=== PATIENT | male | born 1975 | race Caucasian/White ===

== ENCOUNTER 2023-05-27 20:47 | Emergency (ER) | payer SELFPAY ==
[2023-05-27 21:04] VITALS: BP 125/86; PULSE 74; RESP 20; TEMP 36.9; O2SAT 98; BMI 18.1
[2023-05-27 21:56] VITALS: BP 104/71; PULSE 80; RESP 16; O2SAT 100
--- NOTE | 2023-05-27 22:03 | ED.URI1 ---
HPI - URI/Sore Throat General Chief Complaint: Upper Respiratory Infection Stated Complaint: sore throat Time Seen by Provider: 05/27/23 21:25 Source: patient Limitations: no limitations History of Present Illness HPI Narrative: 10 days ago the patient developed sore throat and mild congestion and cough. No vomiting or diarrhea. He had chills initially and has been having night sweats since then. He has tried OTC meds - nyquil - with slow and steady improvement but the continued sweats at night worried me so he decided to come in for evaluation. Related Data Previous Rx's Medication Instructions Recorded azithromycin 250 mg tablet 250 mg PO DAILY 4 days #4 tabs 05/27/23 Allergies Allergy/AdvReac Type Severity Reaction Status Date / Time No Known Drug Allergies Allergy Verified 05/27/23 21:10 [facility] Social History Smoking status: Current every day smoker Exam Narrative Exam Narrative: Nurses notes and vital signs reviewed and patient is not hypoxic. afebrile General: Well-appearing and in no apparent distress. occasional dry cough Skin: Warm, dry, no pallor noted. No rash. Head: Normocephalic, atraumatic. Neck: Supple, non-tender. no cervical lymphadenopathy Eye: Pupils are equal, round and EOMI. No scleral icterus. Ears, Nose, Mouth, and Throat: TM are clear, mild nasal mucosal hypertrophy. Oral mucosa is moist, no posterior oropharynx erythema, uvula is mid-line Cardiovascular: Regular Rate and Rhythm without murmur, gallop or rub. Respiratory: No accessory muscle use or respiratory distress. Lungs are clear to auscultation, no wheezing, rales or rhonchi GI: Abdomen is soft, non-distended. Normal bowel sounds. No tenderness to palpation. No rebound, guarding, or rigidity noted. Neurological: A&O x4. No cranial nerve dysfunction observed. No truncal ataxia. Moves all extremities. Sensation intact. Psychiatric: Cooperative and interactive. Normal mood and affect. Constitutional Vital Signs, click to edit/add: Last Vital Signs Temp 98.4 F 05/27/23 21:04 Pulse 80 05/27/23 21:56 Resp 16 05/27/23 21:56 BP 104/71 05/27/23 21:56 Pulse Ox 100 05/27/23 21:56 O2 Del Method Room Air 05/27/23 21:04 Course Vital Signs Vital signs: Vital Signs Temperature 98.4 F 05/27/23 21:04 Pulse Rate 74 05/27/23 21:04 Respiratory Rate 20 05/27/23 21:04 Blood Pressure 125/86 05/27/23 21:04 Pulse Oximetry 98 05/27/23 21:04 Oxygen Delivery Method Room Air 05/27/23 21:04 Temperature 98.4 F 05/27/23 21:04 Pulse Rate 80 05/27/23 21:56 Respiratory Rate 16 05/27/23 21:56 Blood Pressure 104/71 05/27/23 21:56 Pulse Oximetry 100 05/27/23 21:56 Oxygen Delivery Method Room Air 05/27/23 21:04 MDM - URI/Sore Throat MDM Narrative Medical decision making narrative: screens for strep and covid were negative. CXT shows right perihilar changes. Patient informed of test results, given reassurance, discharged home with prescription for azithromycin with first dose given tonight. Lab Data Attestation: I reviewed the patient's lab results. Labs: Lab Results 05/27/23 Range/Units 21:52 SARS-CoV-2 (PCR) Negative (NEGATIVE) Streptococcus Screen Negative Imaging Data Chest x-ray: My impression: right perihilar infiltrate Radiologist's impression: Patient Name: FEDERICO WING MRN: [id number] date: 1975 Sex: M Assigned Patient Location: ER Current Patient Location: ED.MAIN Accession/Order Number: [id number] Exam Date: 05/27/2023 22:10 Report Date: 05/27/2023 22:37 At the request of: LUC BUSTILLO Procedure: XR chest 1V EXAMINATION: XR chest 1V, , 05/27/2023 10:10 PM EST INDICATION: cough, nights sweats HISTORY: Ordering Provider Reason for Exam: cough, nights sweats Technologist Note: Additional: COMPARISON: None. TECHNIQUE: Chest x-ray: One view. FINDINGS: No pneumothorax, pleural effusion or focal airspace consolidation. Heart is normal in size. Bony thorax is unremarkable. IMPRESSION: No acute cardiopulmonary process. Electronically authenticated by: SAMANTHA ALFORD Date: 05/27/2023 22:37 Discharge Plan Discharge Chief Complaint: Upper Respiratory Infection Clinical Impression: Community acquired pneumonia Patient Disposition: Home, Self-Care Time of Disposition Decision: 22:37 Prescriptions / Home Meds: New azithromycin 250 mg tablet 250 mg PO DAILY 4 Days Qty: 4 0RF Rx Instructions: start on day 2 of therapy Instructions: Community Acquired Pneumonia (ED) Stand Alone Forms: Portal Instructions Referrals: Physician,Non-Staff, MD [Primary Care Provider] - 1 week
--- NOTE | 2023-05-27 22:05 | XR_ITS ---
The [address] [address] Patient Name: FEDERICO WING MRN: [id number] date: 1975 Sex: M Assigned Patient Location: ER Current Patient Location: ED.MAIN Accession/Order Number: [id number] Exam Date: 05/27/2023 22:10 Report Date: 05/27/2023 22:37 At the request of: LUC BUSTILLO Procedure: XR chest 1V EXAMINATION: XR chest 1V, , 05/27/2023 10:10 PM EST INDICATION: cough, nights sweats HISTORY: Ordering Provider Reason for Exam: cough, nights sweats Technologist Note: Additional: COMPARISON: None. TECHNIQUE: Chest x-ray: One view. FINDINGS: No pneumothorax, pleural effusion or focal airspace consolidation. Heart is normal in size. Bony thorax is unremarkable. XR/XR chest 1V IMPRESSION: No acute cardiopulmonary process. Electronically authenticated by: SAMANTHA ALFORD Date: 05/27/2023 22:37
[2023-05-27 22:10] LABS: Internal Control Within Normal Limits; Strep A Antigen Screen Negative
[2023-05-27 22:15] LABS: SARS-CoV-2 Ag NEGATIVE (NEGATIVE)
[2023-05-27] MEDS: AZITHROMYCIN 250 MG TABLET 500 MG PO (22:50)
[2023-05-27 22:52] VITALS: BP 110/70; PULSE 80; RESP 18; O2SAT 98
[2023-05-28 16:19] LABS: SARS-CoV-2 NAA NOT DETECTED (NOT DETECTE)
== END 2023-05-27 22:54 | disposition home or self-care (01) ==
PROVIDERS: Emergency Provider Emergency Medicine
DX: J18.9 Pneumonia, unspecified organism (principal); F17.210 Nicotine dependence, cigarettes, uncomplicated; Z20.822 Contact with and (suspected) exposure to COVID-19
CPT/HCPCS: 71045; 87070; 87635; 87811; 87880; 99284